=== PATIENT | female | born 1955 | race Caucasian/White ===

== ENCOUNTER 2016-06-09 10:07 | Emergency (ER) | payer BC ==
[~2016-06-09] VITALS: Ht 162.5 cm; Wt 90.7 kg
--- NOTE | ~2016-06-09 | EKG ---
[place], [place] ELECTROCARDIOGRAM REPORT NAME: VON VILLANUEVA UNIT #: [id number] ROOM: DOCTOR: SHEYLA CONNORS MD BIRTHDATE: [birth year] DOS: 06/09/2016 TIME: 1027 hours. FINDINGS: 1. Apparent accelerated junctional rhythm. 2. No definite P wave seen. 3. Nonspecific ST and T wave changes. 4. Abnormal electrocardiogram. SHEYLA CONNORS MD CM:EKGRPT:ELECTROCARDIOGRAM REPORT [id number] SHEYLA CONNORS MD
[2016-06-09 10:46] LABS: ALBUMIN 3.9 gm/dl (3.1-4.5); ALKALINE PHOSPHATASE 94 U/L (45-117); BILIRUBIN, TOTAL 0.6 mg/dl (0.2-1.0); BUN 17 mg/dl (7-24); CARBON DIOXIDE 23 mmol/L (21-32); CHLORIDE 107 mmol/L (98-107); EST GLOM FILT AFRICAN AMERICAN > 60 ml/min; GLUCOSE 91 mg/dL (65-99); MAGNESIUM 2.2 mg/dL (1.5-2.1); SGOT/AST 18 IU/L (3-35); SGPT/ALT 23 U/L (12-78); SODIUM 140 mmol/L (136-145)
[2016-06-09 10:47] LABS: TROPONIN I < 0.015 ng/ml (<0.045)
[2016-06-09 10:51] LABS: BASO % 0.6 % (0.0-1.0); EOS # 0.1 10*3/uL (0.0-0.4); EOS % 1.9 % (1.0-4.0); HEMATOCRIT 40.9 % (37.0-47.0); HEMOGLOBIN 13.7 g/dl (12.0-16.0); LYMPH % 30.1 % (27.0-41.0); MEAN CELL VOLUME 93.8 fl (81.0-99.0); MEAN CORPUSCULAR HGB 31.4 pg (27.0-31.0); MEAN CORPUSCULAR HGB CONC 33.5 g/dl (33.0-37.0); MEAN PLATELET VOLUME 11.1 fl (9.6-12.3); MONO # 0.4 10*3/uL (0.1-1.0); NEUT # 4.1 10*3/uL (2.3-7.9); NEUT % 61.3 % (47.0-73.0); PLATELET COUNT AUTOMATED 199 10*3/uL (130-400); RED BLOOD COUNT 4.36 10*6/uL (4.10-5.10); RED CELL DISTRI WIDTH 13.7 % (0-14.5); WHITE BLOOD COUNT 6.7 10*3/uL (4.8-10.8)
[2016-06-09 11:00] LABS: INTERNATIONAL NORM RATIO 1.8 (2.0-3.5); PROTHROMBIN TIME 19.3 SECONDS (9.0-12.4)
== END 2016-06-09 15:49 | disposition short-term general hospital (02) ==
LOC: ED 10:07
PROVIDERS: Emergency Medicine
DX: R07.89 Other chest pain (principal); I48.92 Unspecified atrial flutter; I45.81 Long QT syndrome; I48.91 Unspecified atrial fibrillation; Z79.01 Long term (current) use of anticoagulants; Z88.6 Allergy status to analgesic agent